=== PATIENT | male | born 1945 | race Caucasian/White ===

== ENCOUNTER 2023-07-17 11:17 | Outpatient (CLI) | payer OTHER, BC | END 2023-07-17 19:44 | disposition home or self-care (01) | LOC: SCT 11:17 | PROVIDERS: ATTEND Internal Medicine Cardiovascular Disease | DX: R91.8 Other nonspecific abnormal finding of lung field (principal); J92.9 Pleural plaque without asbestos; I35.8 Other nonrheumatic aortic valve disorders; K44.9 Diaphragmatic hernia without obstruction or gangrene; I25.10 Atherosclerotic heart disease of native coronary artery without angina pectoris; M47.814 Spondylosis without myelopathy or radiculopathy, thoracic region | CPT/HCPCS: 71250-TC; 76376 ==